=== PATIENT | male | born 1985 | race Caucasian/White ===

== ENCOUNTER 2020-06-10 17:14 | Emergency (ER) | payer BC | END 2020-06-10 17:53 | disposition home or self-care (01) | LOC: FER 17:14 | DX: Z48.00 Encounter for change or removal of nonsurgical wound dressing (principal) | CPT/HCPCS: 99281-25 ==

== ENCOUNTER 2024-02-25 18:23 | Emergency (ER) | payer BC ==
[2024-02-25 18:38] VITALS: BP 129/78; PULSE 61; RESP 20; TEMP 98.2; BMI 25.7
[2024-02-25] MEDS ORDERED: LIDOCAINE HCL 1%, 10 MG/ML (20ML VIAL) ONE (18:45)
== END 2024-02-25 19:24 | disposition home or self-care (01) ==
LOC: FER 18:23
PROC: 0XQWXZZ Repair Left Little Finger, External Approach (ICD-10-PCS; principal; 2024-02-25)
DX: S61.217A Laceration without foreign body of left little finger without damage to nail, initial encounter (principal); W26.0XXA Contact with knife, initial encounter
CPT/HCPCS: 99283-25